=== PATIENT | female | born 1960 | race African-American/Black ===

== ENCOUNTER → 2016-08-03 | Outpatient (CLI) | payer BC ==
[2015-01-20 18:36] VITALS: BP 137/60
[~2016-08-03] MED LIST: CETI10TA16 PO; FLUT16SP NS; SERT100T PO
--- NOTE | 2016-08-03 16:25 | KCIC ---
LEFT HAND, VIEWS 4 Indication: Pain and locking in the left fifth finger. Findings: AP, oblique, and lateral views of the hand and collimated lateral view of the fifth finger. Carpal bones are incompletely included in the [id number]. There is no acute fracture or dislocation. There is no bony erosion. Mild PIP and DIP joint space narrowing. Mineralization is normal. There is no radiographically apparent soft tissue swelling or radiopaque foreign body. IMPRESSION: No acute bone abnormality. Electronically signed by: Sage Sánchez MD (08/03/2016 4:22 PM)
== END | disposition home or self-care (01) ==
LOC: KCIC 15:41
PROVIDERS: ATTEND Family Medicine
DX: M79.672 Pain in left foot (principal)
CPT/HCPCS: 73130